=== PATIENT | female | born 2000 | race Two or more races ===

== ENCOUNTER 2020-06-10 23:05 | Emergency (ER) | payer SELFPAY ==
[~2020-06-10] VITALS: Ht 157.5 cm; Wt 65.8 kg
[2020-06-10 23:05] VITALS: BP 141/91
[2020-06-10] MEDS ORDERED: LIDOCAINE HCL/MPF 1% 30 ML VIAL IJ ONE (23:22)
[2020-06-10] MEDS ORDERED: TDAP [DIPH/PERTUSSIS/TET] 0.5 ML VIAL IM ONE ×2 (23:30→23:35)
== END 2020-06-11 00:26 | disposition home or self-care (01) ==
LOC: ER 23:09
DX: S81.812A Laceration without foreign body, left lower leg, initial encounter (principal); S71.112A Laceration without foreign body, left thigh, initial encounter; X99.2XXA Assault by sword or dagger, initial encounter; Y93.89 Activity, other specified; Y92.89 Other specified places as the place of occurrence of the external cause; Y99.8 Other external cause status
CPT/HCPCS: 12002; 90471; 90715; 99283; A6403; J3490